=== PATIENT | female | born 1990 | race Asian ===

== ENCOUNTER 2021-04-13 11:05 | Outpatient (CLI) | payer BC ==
[2021-04-13 11:48] LABS: #Eosinphils 0.3 10x3/uL (0.0-0.5); #Monocytes 0.4 10x3/uL (0.0-1.1); #Neutrophils 2.7 10x3/uL (1.5-8.4); %Basophils 0.5 % (0.0-2.0); %Eosinophils 4.6 % (0.0-6.0); %Lymphocytes 39.3 % (18.0-47.0); %Monocytes 7.3 % (0.0-10.0); %Neutrophils 48.1 % (40.0-75.0); Hemoglobin 13.3 g/dL (12.0-15.5); Mean Corpuscular Hemoglobin 30.9 pg (27.0-33.0); Mean Corpuscular Volume 90.9 fl (81.6-98.3); Mean Platelet Volume 9.2 fl (7.4-10.4); Platelet Count 463 10x3/uL (150-450); RBC Distribution Width 12.7 % (11.5-14.5); White Blood Cell (WBC) Count 5.7 10x3/uL (3.5-10.5)
[2021-04-13 11:56] LABS: BHCG - Serum Negative (NEGATIVE); Pregs Control Bar Appear? YES (CONTROL BAR)
[2021-04-13 11:57] LABS: Pregs Control Background? CLEAR/WHITE (CLR/WHITE)
[2021-04-13 12:05] LABS: Anion Gap 13 mmol/L (10-20); BUN (Urea Nitrogen) 11 mg/dL (7.0-18.7); Calc. Creatinine Clearance 0 mL/min (70-130); Calcium 9.5 mg/dL (7.8-10.44); Carbon Dioxide 23 mmol/L (22-29); Chloride 107 mmol/L (98-107); Glucose 97 mg/dL (70-105); Potassium 4.5 mmol/L (3.5-5.1); Sodium 138 mmol/L (136-145)
[2021-04-13 21:54] LABS: SARS-CoV-2 PCR by NAA Not Detected (NotDetected)
== END 2021-04-13 11:06 | disposition home or self-care (01) ==
LOC: LABBT 11:05
PROVIDERS: ATTEND Surgery
DX: Z01.812 Encounter for preprocedural laboratory examination (principal); Z20.822 Contact with and (suspected) exposure to COVID-19
CPT/HCPCS: 80048; 84703; 85025; U0003; U0005

== ENCOUNTER → 2021-04-16 | Day surgery (SDC) | payer BC ==
[2021-04-15 12:16] VITALS: BMI 21.2
[~2021-04-16] MED LIST: Acetaminophen 500 MG TAB ONE; Bupivacaine 0.25% HCL 30 ML VIAL ONE; Dexamethasone 20 MG/5 ML VIAL ONE; Fentanyl 100 MCG/2 ML VIAL ONE; Isosulfan Blue 50 MG/5 ML VIAL ONE; Ketorolac Tromethamine 30 MG/ML VIAL ONE; Lidocaine 1% w/Epinephrine 1:100K 20 ML VIAL ONE; Midazolam HCl 2 mg/2 ml Vial ONE; Ondansetron PF 4 MG/2 ML Vial ONE; PROPOFOL 200 MG/20 ML VIAL ONE; Rocuronium Bromide 10 MG/ML (10ML VIAL) ONE
== END ==
LOC: NM 07:39
PROVIDERS: ATTEND Surgery
PROC: 07B50ZX Excision of Right Axillary Lymphatic, Open Approach, Diagnostic (ICD-10-PCS; principal; 2021-04-16)
PROC: 0HBT0ZZ Excision of Right Breast, Open Approach (ICD-10-PCS; principal; 2021-04-16)
DX: C50.211 Malignant neoplasm of upper-inner quadrant of right female breast (principal); C77.3 Secondary and unspecified malignant neoplasm of axilla and upper limb lymph nodes; D24.1 Benign neoplasm of right breast; D36.7 Benign neoplasm of other specified sites; N60.11 Diffuse cystic mastopathy of right breast; Z17.0 Estrogen receptor positive status [ER+]
CPT/HCPCS: 78195; 88305; 88307; 88342; A9541; J0690; J1100; J1885; J2250; J2405; J2704; J3010; Q9968; S0020

== ENCOUNTER 2021-05-19 15:55 | Outpatient (CLI) | payer BC ==
[2021-05-19 17:36] LABS: #Basophils 0.1 10x3/uL (0.0-0.2); #Eosinphils 0.6 10x3/uL (0.0-0.5); #Monocytes 0.5 10x3/uL (0.0-1.1); #Neutrophils 4.3 10x3/uL (1.5-8.4); %Basophils 1.1 % (0.0-2.0); %Eosinophils 7.8 % (0.0-6.0); %Lymphocytes 32.7 % (18.0-47.0); %Monocytes 6.6 % (0.0-10.0); %Neutrophils 51.7 % (40.0-75.0); Hemoglobin 11.6 g/dL (12.0-15.5); Mean Corpuscular HGB CONC 32.6 g/dL (32.0-36.0); Mean Corpuscular Hemoglobin 29.8 pg (27.0-33.0); Mean Corpuscular Volume 91.5 fl (81.6-98.3); Mean Platelet Volume 9.2 fl (7.4-10.4); Platelet Count 367 10x3/uL (150-450); RBC Distribution Width 12.4 % (11.5-14.5); Red Blood Cell (RBC) Count 3.89 10x6/uL (3.90-5.03); White Blood Cell (WBC) Count 8.2 10x3/uL (3.5-10.5)
[2021-05-20 01:36] LABS: SARS-CoV-2 PCR by NAA Not Detected (NotDetected)
== END 2021-05-19 15:56 | disposition home or self-care (01) ==
LOC: LABBT 15:55
PROVIDERS: ATTEND Surgery
DX: Z01.812 Encounter for preprocedural laboratory examination (principal); Z20.822 Contact with and (suspected) exposure to COVID-19
CPT/HCPCS: 85025; U0003; U0005

== ENCOUNTER 2021-05-21 12:13 | Day surgery (SDC) | payer BC ==
[2021-05-20 12:11] VITALS: BMI 21.2
[2021-05-21] MEDS ORDERED: ceFAZolin 2 GM/DEX 5% 100 ML BAG ONE (13:14)
[2021-05-21] MEDS ORDERED: Fentanyl 250 MCG/5 ML VIAL ONE (13:28)
[2021-05-21] MEDS ORDERED: Ondansetron PF 4 MG/2 ML Vial ONE (13:35)
[2021-05-21] MEDS ORDERED: PROPOFOL 200 MG/20 ML VIAL ONE (13:35)
[2021-05-21] MEDS ORDERED: Lidocaine 1% PF 5 ML VIAL ONE (13:35)
[2021-05-21] MEDS ORDERED: Dexamethasone 20 MG/5 ML VIAL ONE (13:35)
[2021-05-21] MEDS ORDERED: Ketorolac Tromethamine 30 MG/ML VIAL ONE (13:35)
[2021-05-21] MEDS ORDERED: ePHEDrine 50 MG/ML VIAL ONE (13:35)
[2021-05-21] MEDS ORDERED: Lidocaine 1% w/Epinephrine 1:100K 20 ML VIAL ONE (14:04)
[2021-05-21] MEDS ORDERED: Bupivacaine 0.25% HCL 30 ML VIAL ONE (14:04)
== END 2021-05-21 16:35 | disposition home or self-care (01) ==
LOC: SDC 12:13
PROVIDERS: ATTEND Surgery
PROC: 0HBT0ZZ Excision of Right Breast, Open Approach (ICD-10-PCS; principal; 2021-05-21)
DX: C50.411 Malignant neoplasm of upper-outer quadrant of right female breast (principal); C50.811 Malignant neoplasm of overlapping sites of right female breast; N60.91 Unspecified benign mammary dysplasia of right breast; C77.3 Secondary and unspecified malignant neoplasm of axilla and upper limb lymph nodes; Z17.0 Estrogen receptor positive status [ER+]
CPT/HCPCS: 88307; 88341; 88342; J1100; J1885; J2405; J2704; J3010; J3490; S0020

== ENCOUNTER 2021-06-03 15:33 | Outpatient (CLI) | payer BC ==
[2021-06-04 08:46] LABS: SARS-CoV-2 PCR by NAA Not Detected (NotDetected)
== END 2021-06-03 15:34 | disposition home or self-care (01) ==
LOC: LABBT 15:33
PROVIDERS: ATTEND Surgery
DX: Z01.812 Encounter for preprocedural laboratory examination (principal); Z20.822 Contact with and (suspected) exposure to COVID-19
CPT/HCPCS: U0003; U0005

== ENCOUNTER 2021-06-04 10:09 | Day surgery (SDC) | payer BC ==
[2021-06-03 16:38] VITALS: BMI 21.2
[2021-06-04] MEDS ORDERED: Bupivacaine 0.25% HCL 30 ML VIAL ONE (11:05)
[2021-06-04] MEDS ORDERED: EPINEPHrine 1 MG/ML AMP ONE (11:05)
[2021-06-04] MEDS ORDERED: ceFAZolin 2 GM/DEX 5% 100 ML BAG ONE (11:11)
[2021-06-04] MEDS ORDERED: Fentanyl 100 MCG/2 ML VIAL ONE ×2 (11:25→13:07)
[2021-06-04] MEDS ORDERED: Midazolam HCl 2 mg/2 ml Vial ONE (11:25)
[2021-06-04] MEDS ORDERED: PROPOFOL 200 MG/20 ML VIAL ONE (11:33)
[2021-06-04] MEDS ORDERED: Dexamethasone 20 MG/5 ML VIAL ONE (11:33)
[2021-06-04] MEDS ORDERED: Ketorolac Tromethamine 30 MG/ML VIAL ONE (11:33)
[2021-06-04] MEDS ORDERED: Lidocaine 1% PF 5 ML VIAL ONE (11:33)
[2021-06-04] MEDS ORDERED: PHENYLEPHRINE-NS 100 MCG/ML 10 ML SYRINGE ONE (11:33)
[2021-06-04] MEDS ORDERED: Ondansetron PF 4 MG/2 ML Vial ONE (11:33)
[2021-06-04] MEDS ORDERED: traMADol HCl 50 MG TAB ONE (14:28)
== END 2021-06-04 15:29 | disposition home or self-care (01) ==
LOC: SDC 10:09
PROVIDERS: ATTEND Surgery
PROC: 0H9T00Z Drainage of Right Breast with Drainage Device, Open Approach (ICD-10-PCS; principal; 2021-06-04)
DX: N64.89 Other specified disorders of breast (principal); C50.811 Malignant neoplasm of overlapping sites of right female breast; Z17.0 Estrogen receptor positive status [ER+]; Z91.048 Other nonmedicinal substance allergy status; Z98.890 Other specified postprocedural states; Z90.11 Acquired absence of right breast and nipple
CPT/HCPCS: 87070; 87077; 87186; 87205; J0171; J2250; J3010; S0020

== ENCOUNTER 2022-07-28 10:50 | Outpatient (CLI) | payer BC | END 2022-07-28 10:51 | disposition home or self-care (01) | LOC: RAD 10:50 | PROVIDERS: ATTEND Internal Medicine Hematology & Oncology | DX: M25.552 Pain in left hip (principal); C50.411 Malignant neoplasm of upper-outer quadrant of right female breast ==

== ENCOUNTER 2023-03-08 15:20 | Outpatient (CLI) | payer BC | END 2023-03-08 15:21 | disposition home or self-care (01) | LOC: BICMAMMO 15:20 | PROVIDERS: ATTEND Internal Medicine Hematology & Oncology | DX: Z13.820 Encounter for screening for osteoporosis (principal); C50.411 Malignant neoplasm of upper-outer quadrant of right female breast; M85.89 Other specified disorders of bone density and structure, multiple sites; T38.6X5A Adverse effect of antigonadotrophins, antiestrogens, antiandrogens, not elsewhere classified, initial encounter | CPT/HCPCS: 77080 ==

== ENCOUNTER 2023-09-05 09:05 | Outpatient (CLI) | payer BC | END 2023-09-05 09:06 | disposition home or self-care (01) | LOC: BICMRI 09:05 | PROVIDERS: ATTEND Specialist | DX: Z12.31 Encounter for screening mammogram for malignant neoplasm of breast (principal); Z85.3 Personal history of malignant neoplasm of breast; Z98.890 Other specified postprocedural states | CPT/HCPCS: 77063; 77067; A9577; C8908 ==